=== PATIENT | female | born 1995 | race Caucasian/White ===

== ENCOUNTER 2016-10-12 05:30 | Emergency (ER) | payer OTHER ==
[~2016-10-12] VITALS: Ht 154.9 cm; Wt 104.3 kg
[~2016-10-12 05:30] MED LIST: BACTRIM DS 8001 TA1 PO; CIPRO250 MG PO; CYCLOBENZAPRINE10 MG PO; HYDROCODONE BIT1 T11 PO; LEVAQUIN750 M1 PO; MOTRIN800 MG PO; Motrin,Rufen800 MG PO; NKHM; PYRIDIUM200 M1 PO; PYRIDIUM200 MG PO; ZOFRAN ODT4 MG SL; ZYRTEC10 MG PO
[2016-10-12] MEDS ORDERED: FLONASE ALLERG9.9 ML NAS (05:43)
[2016-10-12] MEDS ORDERED: CLARITIN10 MG PO (05:43)
== END 2016-10-12 06:00 | disposition home or self-care (01) ==
LOC: ED 05:30
DX: J30.2 Other seasonal allergic rhinitis (principal); F17.200 Nicotine dependence, unspecified, uncomplicated; Z79.899 Other long term (current) drug therapy

== ENCOUNTER → 2017-08-23 | Outpatient (CLI) | payer OTHER ==
[~2017-08-23] MED LIST changes: +CLARITIN10 MG PO; +FLONASE ALLERG9.9 ML NAS
== END | disposition home or self-care (01) ==
LOC: US 16:53
DX: N91.2 Amenorrhea, unspecified (principal); N92.6 Irregular menstruation, unspecified

== ENCOUNTER → 2017-09-08 | Outpatient (CLI) | payer OTHER | END | disposition home or self-care (01) | LOC: CT 09:00 | DX: E27.40 Unspecified adrenocortical insufficiency (principal); R10.84 Generalized abdominal pain ==

== ENCOUNTER → 2017-11-01 | Outpatient (CLI) | payer OTHER ==
[2017-11-01 09:38] LABS: BASO # 0.1 10*3/uL (0.0-0.1); BASO % 0.5 % (0.0-1.0); EOS # 0.2 10*3/uL (0.0-0.4); EOS % 2.1 % (1.0-4.0); HEMATOCRIT 38.8 % (37.0-47.0); HEMOGLOBIN 12.5 g/dl (12.0-16.0); LYMPH # 2.7 10*3/uL (1.3-4.4); LYMPH % 28.9 % (27.0-41.0); MEAN CELL VOLUME 84.9 fl (81.0-99.0); MEAN CORPUSCULAR HGB 27.4 pg (27.0-31.0); MEAN CORPUSCULAR HGB CONC 32.2 g/dl (33.0-37.0); MEAN PLATELET VOLUME 10.1 fl (9.6-12.3); MONO # 0.7 10*3/uL (0.1-1.0); MONO % 7.8 % (3.0-9.0); NEUT # 5.6 10*3/uL (2.3-7.9); NEUT % 60.5 % (47.0-73.0); PLATELET COUNT AUTOMATED 334 10*3/uL (130-400); RED BLOOD COUNT 4.57 10*6/uL (4.10-5.10); RED CELL DISTRI WIDTH 13.2 % (0-14.5); WHITE BLOOD COUNT 9.3 10*3/uL (4.8-10.8)
[2017-11-01 10:03] LABS: ALBUMIN 3.9 gm/dl (3.1-4.5); BILIRUBIN, DIRECT < 0.1 mg/dL (0.0-0.2); SGOT/AST 16 IU/L (3-35); SGPT/ALT 31 U/L (12-78)
[2017-11-01 10:04] LABS: ALKALINE PHOSPHATASE 59 U/L (45-117); TOTAL PROTEIN 7.3 gm/dL (6.4-8.2)
== END | disposition home or self-care (01) ==
LOC: LAB 07:58 → RAD 08:00
PROVIDERS: Nurse Practitioner
DX: R13.10 Dysphagia, unspecified (principal); K21.9 Gastro-esophageal reflux disease without esophagitis; K76.0 Fatty (change of) liver, not elsewhere classified

== ENCOUNTER 2018-11-18 20:09 | Emergency (ER) | payer SELFPAY ==
[~2018-11-18] VITALS: Ht 152.4 cm; Wt 97.5 kg
[~2018-11-18 20:09] MED LIST changes: +ALLEGRA-D 24 H1 EACH PO; +METFORMIN HYDR500 MG PO; +OMEPRAZOLE40 MG PO; +VITAMIN E400 UNI2 PO
[2018-11-18] MEDS ORDERED: MEDROL DOSEPAK4 MG PO (21:57)
[2018-11-18] MEDS ORDERED: Motrin,Rufen800 MG PO (21:57)
[2018-11-18] MEDS ORDERED: CYCLOBENZAPRINE5 M3 PO (21:57)
== END 2018-11-18 22:08 | disposition home or self-care (01) ==
LOC: ED 20:09
DX: S39.012A Strain of muscle, fascia and tendon of lower back, initial encounter (principal); F17.200 Nicotine dependence, unspecified, uncomplicated; Z79.899 Other long term (current) drug therapy; W18.49XA Other slipping, tripping and stumbling without falling, initial encounter; Y93.89 Activity, other specified; Y92.091 Bathroom in other non-institutional residence as the place of occurrence of the external cause; Y99.9 Unspecified external cause status

== ENCOUNTER 2019-02-04 17:10 | Emergency (ER) | payer SELFPAY ==
[~2019-02-04] VITALS: Ht 152.4 cm; Wt 90.7 kg
[~2019-02-04 17:10] MED LIST changes: +AMOXICILLIN500 M2 PO; +CYCLOBENZAPRINE5 M3 PO; +DIFLUCAN150 MG PO; +MEDROL DOSEPAK4 MG PO
== END 2019-02-04 17:51 | disposition home or self-care (01) ==
LOC: ED 17:10
DX: H02.844 Edema of left upper eyelid (principal)

== ENCOUNTER 2019-08-08 22:29 | Emergency (ER) | payer SELFPAY ==
[~2019-08-08] VITALS: Ht 152.4 cm; Wt 93.0 kg
== END 2019-08-09 00:18 | disposition home or self-care (01) ==
LOC: ED 22:29
DX: M25.571 Pain in right ankle and joints of right foot (principal); F32.9 Major depressive disorder, single episode, unspecified; F17.200 Nicotine dependence, unspecified, uncomplicated

== ENCOUNTER 2020-07-06 13:03 | Emergency (ER) | payer SELFPAY ==
[~2020-07-06] VITALS: Ht 152.4 cm; Wt 90.7 kg
[2020-07-06] MEDS ORDERED: PROVENTIL HFA6.7 GM INH (16:02)
[2020-07-06] MEDS ORDERED: PREDNISONE20 M1 PO (16:02)
== END 2020-07-06 16:11 | disposition home or self-care (01) ==
LOC: ED 13:03
DX: J20.8 Acute bronchitis due to other specified organisms (principal); Z20.822 Contact with and (suspected) exposure to COVID-19; F17.200 Nicotine dependence, unspecified, uncomplicated

== ENCOUNTER 2023-07-24 10:09 | Emergency (ER) | payer OTHER ==
[~2023-07-24] VITALS: Wt 63.5 kg
[~2023-07-24 10:09] MED LIST changes: +PREDNISONE20 M1 PO; +PROVENTIL HFA6.7 GM INH
[2023-07-24] MEDS ORDERED: METHOCARBAMOL 750 MG TAB PO ONE (12:05)
[2023-07-24] MEDS ORDERED: NAPROXEN 250 MG TAB PO ONE (12:05)
[2023-07-24] MEDS ORDERED: NAPROSYN500 MG PO (12:06)
[2023-07-24] MEDS ORDERED: METHOCARBAMOL750 M1 PO (12:06)
== END 2023-07-24 12:43 | disposition home or self-care (01) ==
LOC: ED 10:09
DX: S16.1XXA Strain of muscle, fascia and tendon at neck level, initial encounter (principal); R51.9 Headache, unspecified; R07.89 Other chest pain; Z79.899 Other long term (current) drug therapy; V43.62XA Car passenger injured in collision with other type car in traffic accident, initial encounter; Y93.89 Activity, other specified; Y92.488 Other paved roadways as the place of occurrence of the external cause; Y99.8 Other external cause status

== ENCOUNTER → 2024-02-21 | Outpatient (CLI) | payer OTHER ==
[~2024-02-21] MED LIST changes: +METHOCARBAMOL750 M1 PO; +NAPROSYN500 MG PO
[2024-02-21 11:19] LABS: BASO # 0.1 10*3/uL (0.0-0.1); BASO % 0.6 % (0.0-1.0); EOS # 0.2 10*3/uL (0.0-0.4); EOS % 1.7 % (1.0-4.0); HEMATOCRIT 40.2 % (37.0-47.0); MEAN CELL VOLUME 90.3 fl (81.0-99.0); MEAN CORPUSCULAR HGB 28.8 pg (27.0-31.0); MEAN CORPUSCULAR HGB CONC 31.8 g/dl (33.0-37.0); MEAN PLATELET VOLUME 9.7 fl (9.6-12.3); MONO # 0.8 10*3/uL (0.1-1.0); MONO % 8.7 % (3.0-9.0); NEUT # 5.5 10*3/uL (2.3-7.9); NEUT % 63.2 % (47.0-73.0); PLATELET COUNT AUTOMATED 325 10*3/uL (130-400); RED BLOOD COUNT 4.45 10*6/uL (4.10-5.10); RED CELL DISTRI WIDTH 12.2 % (0-14.5); WHITE BLOOD COUNT 8.7 10*3/uL (4.8-10.8)
[2024-02-21 12:12] LABS: VITAMIN D, 25-HYDROXY 27.8 ng/mL (30-100)
[2024-02-21 12:13] LABS: ALKALINE PHOSPHATASE 66 U/L (46-116); BUN 12 mg/dl (9-23); CHLORIDE 107 mmol/L (98-107); CHOLESTEROL 172 mg/dL (<200); FREE T4 1.32 ng/dl (0.89-1.76); LDL CHOLESTEROL 93 mg/dL (9-159); POTASSIUM 4.1 mmol/L (3.4-5.1); SGPT/ALT 13 U/L (5-49); TOTAL PROTEIN 7.1 gm/dL (6.0-8.0); TRIGLYCERIDES 106 mg/dl (<150)
[2024-02-22 15:10] LABS: THYROGLOBULIN ANTIBODY 1.6 IU/mL (0.0-0.9)
== END | disposition home or self-care (01) ==
LOC: US 10:00
PROVIDERS: ATTEND Nurse Practitioner Family
DX: E04.1 Nontoxic single thyroid nodule (principal); E66.01 Morbid (severe) obesity due to excess calories; E88.810 Metabolic syndrome; E78.2 Mixed hyperlipidemia; E55.9 Vitamin D deficiency, unspecified; Z76.89 Persons encountering health services in other specified circumstances

== ENCOUNTER → 2024-03-08 | Outpatient (CLI) | payer OTHER | END | disposition home or self-care (01) | LOC: SDC 02-29 03:14 → EDSTATUS 02-29 11:00 → SDC 02-29 11:00 | PROVIDERS: Radiology Diagnostic Radiology; ATTEND Nurse Practitioner Family | DX: E04.1 Nontoxic single thyroid nodule (principal) ==

== ENCOUNTER → 2024-09-07 | Outpatient (CLI) | payer OTHER ==
[2024-09-07 18:32] LABS: BASO # 0.0 10*3/uL (0.0-0.1); BASO % 0.4 % (0.0-1.0); EOS # 0.1 10*3/uL (0.0-0.4); EOS % 1.1 % (1.0-4.0); MEAN CELL VOLUME 87.4 fl (81.0-99.0); MEAN CORPUSCULAR HGB 28.7 pg (27.0-31.0); MEAN PLATELET VOLUME 10.0 fl (9.6-12.3); MONO # 0.6 10*3/uL (0.1-1.0); MONO % 6.7 % (3.0-9.0); NEUT # 5.9 10*3/uL (2.3-7.9); NEUT % 65.7 % (47.0-73.0); NUCLEATED RED BLOOD CELL 0.0 % (0.0-0.0); NUCLEATED RED BLOOD CELL 0.0 10*3/uL (0.0-0.0); PLATELET COUNT AUTOMATED 336 10*3/uL (130-400); RED CELL DISTRI WIDTH 12.5 % (0-14.5)
[2024-09-07 18:45] LABS: BUN 11 mg/dl (9-23); SGPT/ALT 13 U/L (5-49)
[2024-09-07 19:05] LABS: VITAMIN D, 25-HYDROXY 63.3 ng/mL (30-100)
== END | disposition home or self-care (01) ==
LOC: LAB 17:48
PROVIDERS: ATTEND Nurse Practitioner Family
DX: E04.1 Nontoxic single thyroid nodule (principal); E55.9 Vitamin D deficiency, unspecified; E88.810 Metabolic syndrome; R53.82 Chronic fatigue, unspecified